=== PATIENT | female | born 1955 | race African-American/Black ===

== ENCOUNTER 2018-07-22 12:10 | Inpatient (IN) | payer OTHER ==
[2018-07-22] VITALS (21 sets, daily range): BP systolic 152–200; BP diastolic 57–108
[~2018-07-22] VITALS: Ht 172.7 cm; Wt 123.7 kg
--- NOTE | ~2018-07-22 | HC ---
[facility] [place] [address] CONSULTATION Name: FABIOLA VÁZQUEZ Room #: 243-P ADM IN M.R.#: [id number] Admission: 07/22/18 Attend Phys: Chad Fernandez MD Discharge: Date of : 59 Report #: [id number] THIS REPORT FOR: //name// CC: MELISSA physician/PCP Chad Fernandez DATE OF SERVICE: 07/22/2018 HISTORY OF PRESENT ILLNESS: This is a 62-year-old female patient who was evaluated by me for stroke. The patient was discussed with the Emergency Room physician and the patient provided history. The patient had an episode of dizziness, nausea, vomiting yesterday and she said she fully resolved from that. At 4:00 this morning, episode of dizziness, nausea and vomiting woke her up and she has never returned back to her baseline. She never had this kind of symptom before. She did have a CT scan of the head and I reviewed those films and CT scan of the head does demonstrate finding consistent with infarct in the left cerebellum, which is concerning. There is no pressure on the fourth ventricle; however, the patient's symptoms started just this morning. She denies any prior history of stroke and in fact, she still works at [employer]. She had a normal week last week. REVIEW OF SYSTEMS: Indicate that she does have a history of kidney problems. She has seen a teacher of the deaf/hard of hearing for a long time. She does have a history of hypertension. She had a prior history of hysterectomy. She does have a history of diabetes and blood sugar here is 205. She does not have any history of atrial fibrillation or anything specific to the heart. She keeps her eyes closed. She said it makes the nausea better. She is not complaining of any ENT, cardiac, respiratory symptoms. She is still nauseous, but is somewhat better. She denies any , musculoskeletal, constitutional, dermatological, hematological, psychiatric, throat, allergic symptom, which are new. PAST MEDICAL HISTORY: Negative for stroke. FAMILY HISTORY: Negative for any early age stroke. SOCIAL HISTORY: She does drink alcohol on special occasions. PHYSICAL EXAMINATION: Indicates she is alert, responsive. Her speech, concentration, fund of knowledge and memory is at her baseline. Cranial nerve examination 2-12, the best it could be done was unremarkable. She does complain of nausea. She moves her eyes in all directions and it does not look like she has any nystagmus. She moves all 4 extremities and she does appear to have akremu-ko-ftth abnormality in the left upper extremity. Nifn-ay-cwve, she does reasonably well even on the left side. Position sense is intact. I could not look at the fundus. She is moderately built individual who does not have any respiratory difficulty or rhonchi on either side. There is no edema, cyanosis [facility] [address] [place] [address] CONSULTATION Name: FABIOLA VÁZQUEZ Room #: 243-P ADM IN M.R.#: [id number] Admission: 07/22/18 Attend Phys: Chad Fernandez MD Discharge: Date of : 59 Report #: [id number] or jaundice. Blood pressure is 167/79, respirations 20, pulse is 89, temperature is 97.9. LABORATORY DATA: Indicate a white count of 13.0. 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 If the finding can be confirmed, then she needs to be watched very closely. This patient tends to herniate and typically the edema has worsened about the third day. She will need to be closely watched for that. We also need to determine the cause for her stroke. It will be desirable to make sure there is nothing abnormal going on in the basilar artery, which will require either medical management where we need to keep the blood pressure high. Although intervention can be done for 24 hours, but if the CT is already showing the stroke, then she may not be very good intervention candidate, but we need to find out if she is or not. Because of that, I would like to get an MRI done stat in this patient and I did order that. She does not have any contraindication for MRI. The patient is still nauseous and pretty dizzy. I will give the first dose of aspirin as a suppository. Rest of the management will depend upon the MRI. Until the MRI is done, the patient will go to ICU for close monitoring for development of any sign of herniation or increasing brain edema. This patient will need close monitoring for at least 3-5 days if the cerebellar stroke is confirmed. RECOMMENDATION: I discussed the situation with the patient. I discussed with her that cerebellar strokes need to be monitored very closely for edema. Only small percentage of them require surgery, but we need to watch this patient and if surgery is required, there is no neurosurgeon comes here and she need to be transferred to another facility. I discussed that with her and I discussed her options in that regard. She understands all those and she would like to get admitted here and get admitted to ICU and we will need to watch closely this patient over a period of some time. She is 62-year-old, she is female and we just need to watch her very closely for edema, especially in the light of her cerebellar stroke. Thank you very much for this referral. By: [id number] Gideon Shin MD /ingrid
[2018-07-22 13:38] LABS: ABSOLUTE NEUTROPHILS 11.7 thou/uL (1.4-8.2); BASOPHILS 0.5 % (0.0-2.0); EOSINOPHILS 0.3 % (0.0-3.0); HEMATOCRIT 30.6 % (37.0-47.0); HEMOGLOBIN 10.1 gm/dL (12.0-15.0); LYMPHOCYTES 6.6 % (24.0-44.0); MCH 29.6 pg (26.0-34.0); MCHC 33.1 g/dL (28.0-37.0); MCV 89.6 fL (80.0-100.0); MONOCYTES 2.4 % (1.0-8.0); PLATELET COUNT 171 thou/uL (150-400); POLYS 90.2 % (36.0-66.0); RBC 3.41 mil/uL (4.20-5.00)
[2018-07-22 13:50] LABS: ANION GAP 9 mmol/L (7-16); BUN 35 mg/dL (7-18); CALCIUM 8.8 mg/dL (8.5-10.1); CHLORIDE 108 mmol/L (98-107); CO2 19 mmol/L (21-32); CREATININE 2.8 mg/dL (0.6-1.0); GLUCOSE 205 mg/dL (74-106); POTASSIUM 4.9 mmol/L (3.5-5.1); SODIUM 136 mmol/L (136-145)
[2018-07-22 13:59] LABS: ALBUMIN 3.4 g/dL (3.4-5.0); MAGNESIUM 2.4 mg/dL (1.8-2.4); SGOT 15 U/L (15-37); SGPT 19 U/L (30-65); TOTAL BILIRUBIN 0.2 mg/dL (<0.1-1.0); TOTAL PROTEIN 7.6 g/dL (6.4-8.2); TROPONIN-I <0.06 ng/mL (<0.06)
[2018-07-22 14:00] LABS: APTT 27.1 Seconds (24.5-32.8); PROTIME 10.7 Seconds (9.3-11.4)
[2018-07-22 14:37] LABS: URINE BILIRUBIN NEGATIVE (Negative); URINE BLOOD NEGATIVE (Negative); URINE CLARITY CLEAR; URINE COLOR YELLOW; URINE GLUCOSE-RANDOM* NEGATIVE (Negative); URINE KETONES NEGATIVE (Negative); URINE LEUKOCYTES-REFLEX NEGATIVE (Negative); URINE NITRITE-REFLEX POSITIVE (Negative); URINE PROTEIN (DIPSTICK) 2+ (Negative); URINE UROBILINOGEN 0.2 E.U./dl (0.2-1.0)
[2018-07-22 14:54] LABS: BACTERIA-REFLEX >30 Many /HPF (None Seen); CASTS None Seen /LPF (None Seen); CRYSTALS None Seen /LPF (None Seen); SQUAMOUS 0-3 Few /LPF (0-3); URINE RBC None Seen /HPF (0-2); URINE WBC-REFLEX 0-5 Rare /HPF (0-5)
--- NOTE | 2018-07-22 20:51 | NUR ---
PT ARRIVED ON UNIT FROM MRI WITH NAUSEA/VOMITING, NO PAIN. PT SETTLED IN BED, TITAL TAKEN. REPORT RECIEVED FROM ER AND PASSED ON TO ROUGE MILLER RN.
[2018-07-23] VITALS (49 sets, daily range): BP systolic 146–204; BP diastolic 60–126
[2018-07-23 04:04] LABS: HEMOGLOBIN 9.8 gm/dL (12.0-15.0); MCHC 32.7 g/dL (28.0-37.0); MCV 88.8 fL (80.0-100.0); RBC 3.38 mil/uL (4.20-5.00); RDW 15.3 % (10.5-14.5)
[2018-07-23 04:20] LABS: ANION GAP 11 mmol/L (7-16); BUN 29 mg/dL (7-18); CALCIUM 8.8 mg/dL (8.5-10.1); CHLORIDE 112 mmol/L (98-107); CHOLESTEROL 124 mg/dL (<200); CO2 18 mmol/L (21-32); CREATININE 2.3 mg/dL (0.6-1.0); GLUCOSE 125 mg/dL (74-106); HDL CHOLESTEROL 40 mg/dL (>40); LDL CHOLESTEROL 75 mg/dL (<100); MAGNESIUM 2.5 mg/dL (1.8-2.4); POTASSIUM 5.1 mmol/L (3.5-5.1); SODIUM 141 mmol/L (136-145); TC:HDL 3.1 Ratio (Not establshd); TRIGLYCERIDE 49 mg/dL (<150); VLDL 10 mg/dL (<40)
[2018-07-23 04:28] LABS: SERUM ASSESSMENT Clear
--- NOTE | 2018-07-23 07:30 | NUR ---
ASSUMED CARE OF PT AT 1915. PT ARRIVED IN ICU FROM ER SHORTLY BEFORE SHIFT CHANGE. PT C/O DIZZINESS, AND N/V. NIH 1-2, FOR DROWSINESS AND SLIGHT APHASIA. ZOFRAN GIVEN X1, WHICH HELPED LESSEN N/V. PT SAID THAT THE DIZZINESS AND N/V GETS WORSE WITH MOVEMENT. DUE TO THIS, PT KEPT ON BEDREST AND USED A BEDPAN TO VOID. PT HYPERTENSIVE THROUGHOUT THE NIGHT. DR. DIOR CONTACTED ABOUT WHEN TO TREAT BP; SAID NOT TO TREAT UNTIL SBP > 220 AND TO RESTART HOME BP MEDS. DAUGHTER ALLEN AT BEDSIDE THROUGHOUT THE NIGHT. WILL CONTINUE TO MONITOR.
[2018-07-23] MEDS ORDERED: COZAAR 25 MG TA25 M1 PO (08:22)
[2018-07-23] MEDS ORDERED: SYNTHROID137 MC1 PO (08:22)
[2018-07-23] MEDS ORDERED: CHLORTHALIDONE25 MG PO (08:24)
[2018-07-23] MEDS ORDERED: NORVASC5 M1 PO (08:24)
[2018-07-23] MEDS ORDERED: BIDIL TABLET1 EACH PO (08:25)
[2018-07-23] MEDS ORDERED: SPIRONOLACTONE25 M1 PO (08:25)
[2018-07-23] MEDS ORDERED: METOPROLOL SUC200 MG PO (08:25)
[2018-07-23] MEDS ORDERED: DEMADEX20 MG PO (08:27)
[2018-07-23] MEDS ORDERED: LOPERAMIDE 2 MG2 M1 PO (08:27)
[2018-07-23] MEDS ORDERED: JANUVIA50 MG PO (08:28)
--- NOTE | 2018-07-23 08:40 | EKG ---
[place] [address] [facility] [place] [address] ELECTROCARDIOGRAM REPORT Name: FABIOLA VÁZQUEZ Room #: 243-P ADM IN M.R.#: [id number] Admission: 07/22/18 Attend Phys: Chad Fernandez MD Discharge: Date of : 59 Report #: [id number] THIS REPORT FOR: //name// [facility] ED Test Date: 2018-07-22 Test Time: 13:29:05 Pat Name: FABIOLA VÁZQUEZ Department: Room: 243 Gender: F Marker Hand: anita : 1955 Requested By: Basil Padilla Order Number: [id number] MD: Salas Cruz Measurements Intervals [place] Rate: 89 P: 38 KS: 208 QRS: -44 QRSD: 117 T: 97 QT: 398 QTc: 485 Interpretive Statements Sinus rhythm Borderline prolonged KS interval LVH with IVCD, LAD and secondary repol abnrm Left anterior hemiblock Anterior ST elevation, probably due to LVH No previous ECG available for comparison Electronically Signed On 07-23-2018 8:39:50 FLARE MAKER by Salas Cruz [email or web address] <ELECTRONICALLY SIGNED> By: Salas Cruz MD, [facility] 07/23/18 0839 [id number] [id number] Salas Cruz MD, [facility] /EPI
--- NOTE | 2018-07-23 10:41 | 2DMMODE ---
[facility] [place] [address] 2 D/M-MODE ECHOCARDIOGRAM Name: FABIOLA ÁVZQUEZ Room #: 243-P ADM IN M.R.#: [id number] Admission: 07/22/18 Attend Phys: Chad Fernandez MD Discharge: Date of : 59 Date of Service: 07/23/18 1041 Report #: [id number] THIS REPORT FOR: //name// APPROVED REPORT Study performed: 07/23/2018 08:28:50 EXAM: Comprehensive 2D, Doppler, and color-flow Echocardiogram Patient Location: ICU Room #: 243 Status: routine BSA: 2.04 HR: 91 bpm BP: 184/79 mmHg Other Information Study Quality: Adequate Indications CVA/TIA Diabetes Hypertension/HDD Echo Enhancing Agent Indication: Rule out Shunt Agent(s) / Amount(s) Used: Agitated Saline 7 cc 2D Dimensions RVDd: 33.02 mm IVSd: 11.96 (7-11mm) LVOT Diam: 19.70 (18-24mm) LVDd: 47.86 mm PWd: 11.96 (7-11mm) Ascending Ao: 32.11 (22-36mm) LVDs: 35.43 (25-40mm) Aortic Root: 31.86 mm Volumes Left Atrial Volume (Systole) Single Plane 4CH: 52.74 mL Single Plane 2CH: 72.49 mL LA ESV Index: 34.00 mL/m2 Aortic Valve AoV Peak Gregorio.: 1.87 m/s AO Peak Gr.: 14.00 mmHg LVOT Max P.69 mmHg LVOT Max V: 1.19 m/s MARIA ELENA Vmax: 1.94 cm2 [facility] [email or web address] [address] 2 D/M-MODE ECHOCARDIOGRAM Name: FABIOLA VÁZQUEZ Room #: Counts include 234 beds at the [facility] IN ..#: [id number] Admission: 07/22/18 Attend Phys: Chad Fernandez MD Discharge: Date of : 59 Date of Service: 07/23/18 1041 Report #: [id number] Pulmonary Valve PV Peak Gregorio.: 0.85 m/s PV Peak Gr.: 2.92 mmHg Left Ventricle The left ventricle is normal size. There is normal LV segmental wall motion. Mild concentric left ventricular hypertrophy. The left ventricular systolic function is normal. The left ventricular ejection fraction is within the normal range. LVEF is 55-60%. Grade II - pseudonormal filling dynamics. Right Ventricle The right ventricle is normal size. The right ventricular systolic function is normal. Atria Left atrium is at the upper limits of normal. Interatrial septum is intact without evidence of ASD or PFO. The right atrium size is normal. Aortic Valve The aortic valve is normal in structure. No aortic regurgitation is present. There is no aortic valvular stenosis. Mitral Valve The mitral valve is normal in structure. Trace mitral regurgitation. No evidence of mitral valve stenosis. Tricuspid Valve The tricuspid valve is normal in structure. There is no tricuspid valve regurgitation noted. Pulmonic Valve The pulmonary valve is normal in structure. There is no pulmonic valvular regurgitation. Great Vessels The aortic root is normal in size. The inferior vena cava is not well visualized. Pericardium There is no pericardial effusion. [facility] [email or web address] [address] 2 D/M-MODE ECHOCARDIOGRAM Name: FABIOLA VÁZQUEZ Room #: 243-P ADM IN M.R.#: [id number] Admission: 07/22/18 Attend Phys: Chad Fernandez MD Discharge: Date of : 59 Date of Service: 07/23/18 1041 Report #: [id number] <Conclusion> The left ventricle is normal size. Mild concentric left ventricular hypertrophy. The left ventricular systolic function is normal. Grade II - pseudonormal filling dynamics. The right ventricle is normal size. Left atrium is at the upper limits of normal. Interatrial septum is intact without evidence of ASD or PFO. The aortic valve is normal in structure. Trace mitral regurgitation. There is no tricuspid valve regurgitation noted. <ELECTRONICALLY SIGNED> By: Phan Gonzalez MD 07/23/18 1041 1041 1041 Phan Gonzalez MD /INF
--- NOTE | 2018-07-23 15:45 | NUR ---
patient admits with CVA symtoms. Met with patient and dtr at bedside. patient resides in independent home with son and dtr. 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 She has apt the end of this month for new PCP Dr Amelie Romo. 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 Casemgt following for dc planning.
--- NOTE | 2018-07-23 17:28 | NUR ---
PT IS ALERT AND ORIENTED X4. LUNGS ARE CLEAR ON ROOM AIR. NIH SCALE IS A TWO. SPPECH AND SWALLOW DONE ON A MECH SOFT DIET. TOLERATED WELL. SINUS RHYTHM ON THE MONITOR. ABDOMEN IS SOFT AND ROUND BOWEL SOUNDS ACTIVE. SOME GNERALIZED WEAKNESS NOTED . NEEDS PT AND OT TO SEE PT. VOIDS PER BEDPAN. FAMILY AT BEDSIDE FOR SUPPORT. WILL CONTINUE TO ASSESS AND MONITOR PER NURSING
[2018-07-24] VITALS (32 sets, daily range): BP systolic 137–192; BP diastolic 53–98
--- NOTE | 2018-07-24 04:15 | NUR ---
Pt initially very drowsy, but has become more alert as shift progressed. NIH 1, now 0. NSR-ST per tele. Hypertensive prior to scheduled BP meds. Pt's main complaint is feeling weak and still unsteady. Voids per bedpan without difficulty. Given wipes and did own pericare, positions self in bed. Eager to begin rehab process. Progressing towards discharge goals.
--- NOTE | 2018-07-24 15:06 | NUR ---
PT IS ALERT AND ORIENTED X4. PHYSICAL THERAPY AND OCCUPATIONAL THERAPY WORKED WITH PT. PT ACTIVELY PARTICPATES IN CARE. FAMILY AT BEDSIDE FOR SUPPORT.SINUS RHYTHM WITH BBB. ON ROOM AIR. EATING HER DIET WITHOUT ANY SWALLOWING DIFFICULTY. TIRED AFTER THERAPY TODAY. REHAB AND SPEECH ALSO SAW PT TODAY WITH RECOMENDATIONS. WILL CONTINUE TO ASSESS AND MONITOR PER NURSING
--- NOTE | 2018-07-24 15:29 | NUR ---
5N following for possible acute rehab stay. sp with patient who is in agreement with plan for 5N.
--- NOTE | 2018-07-24 20:06 | NUR ---
TOOK OVER CARE OF PT FROM ICU AT APPROX 1600. NO S/SX OF CARDIAC OR RESP DISTRESS. NO COMPLAINTS VOICED. MAX ASSIST FROM WHEELCHAIR TO BED WITH GAITBELT. AOX4, PT FAMILY IN ROOM. AT APPROX 1742 PT HAD 16 BEAT OF VTACH, PT ASYMPTOMATIC. WILL CONTINUE TO MONITOR.
[2018-07-25 00:13] VITALS: BP 162/73
[2018-07-25 04:37] VITALS: BP 153/91
[2018-07-25 07:12] VITALS: BP 161/79
--- NOTE | 2018-07-25 07:45 | NUR ---
ASSUME CARE 1900. PT DENIES ANY PAIN. Q4 NIH ASSESSMENTS DONE. PT SCORING 0. ILD WEAKNESS NOTED ON LEFT SIDE. NEEDS MORE WORK WITH PT/OT. RESTED WELL THROUGH THE NIGHT. ASSESSMENT CHARTED PROGRESSING WELL WITH POC. PLAN IS FOR INSURANCE TO CLEAR PT FOR 5N REHAB. WILL CONTINUE TO MONITOR AND FOLLOW WITH POC
[2018-07-25 10:56] LABS: HEMATOCRIT 29.3 % (37.0-47.0); HEMOGLOBIN 9.9 gm/dL (12.0-15.0); MCH 29.4 pg (26.0-34.0); MCHC 33.8 g/dL (28.0-37.0); RBC 3.36 mil/uL (4.20-5.00); RDW 15.2 % (10.5-14.5); WBC 13.2 thou/uL (4.0-11.0)
[2018-07-25 11:05] LABS: CALCIUM 8.6 mg/dL (8.5-10.1); CREATININE 2.3 mg/dL (0.6-1.0); POTASSIUM 4.6 mmol/L (3.5-5.1)
[2018-07-25 12:30] VITALS: BP 155/87
--- NOTE | 2018-07-25 14:00 | NUR ---
FAX FROM [facility] WITH AUTH FOR ACUTE INPT REHAB STAY. UPDATED DR. CAI WHO STATES HE NEEDS TO CONFER WITHNEPHROLOGY TO SEE IF PT READY FOR ACUTE REHAB TRANSITION OF CARE TODAY. UPDATED TO 5N LIAISON, 2N RN AND SWS.
--- NOTE | 2018-07-25 14:58 | NUR ---
Nutrition: pt admit with cerebellar infarct. Seen due to BMI 41.5, extreme class 3 obesity. Chart reviewed. Tolerating mechanically altered chopped diet with fair appetite. 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 Possible transfer to . Consider low risk.
[2018-07-25] MEDS ORDERED: ATORVASTATIN CA10 MG PO (15:51)
[2018-07-25] MEDS ORDERED: ANTIVERT25 MG PO (15:51)
[2018-07-25] MEDS ORDERED: CARVEDILOL12.5 MG PO (15:51)
[2018-07-25] MEDS ORDERED: ASPIRIN325 PO (15:51)
[2018-07-25] MEDS ORDERED: TRADJENTA5 MG PO (15:51)
[2018-07-25] MEDS ORDERED: COZAAR100 MG PO (15:51)
[2018-07-25] MEDS ORDERED: CEFUROXIME250 MG PO (15:51)
[2018-07-25 16:30] VITALS: BP 185/106
--- NOTE | 2018-07-25 20:10 | NUR ---
ASSUMED CARE OF PT AT 0700. PT A&OX4, UP WITH 2 AND GAIT BELT TO TRANSFER TO BEDSIDE COMMODE. PHYSICAL THERAPY HAD PT TAKE A FEW STEPS WITH WALKER AND SHE WAS UNSTEADY. PT EVAL BY SPEECH AND SHOULD NOT USED STRAWS TO AVOID ASPIRATION. PT HAD HIGH BLOOD PRESSURE AT 1600. THE DR. HAD INCREASED BP MED AND MED GIVEN. PT TRANSFERRED TO 5N AT APPROX 1800. REPORT GIVEN TO NURSE BENÍTEZ.
== END 2018-07-25 18:33 | DRG 64 ==
LOC: ER 12:10 → EROBS 16:16 → ICU 16:16 → 2N 07-24 16:15
PROVIDERS: Emergency Medicine; Nurse Practitioner Gerontology; ADMIT Internal Medicine
DX: I63.9 Cerebral infarction, unspecified (principal); N17.0 Acute kidney failure with tubular necrosis; I16.1 Hypertensive emergency; I42.9 Cardiomyopathy, unspecified; I13.0 Hypertensive heart and chronic kidney disease with heart failure and stage 1 through stage 4 chronic kidney disease, or unspecified chronic kidney disease; I50.32 Chronic diastolic (congestive) heart failure; Z68.41 Body mass index [BMI] 40.0-44.9, adult; N39.0 Urinary tract infection, site not specified; G81.94 Hemiplegia, unspecified affecting left nondominant side; R26.9 Unspecified abnormalities of gait and mobility; D63.8 Anemia in other chronic diseases classified elsewhere; E11.22 Type 2 diabetes mellitus with diabetic chronic kidney disease; N18.3 Chronic kidney disease, stage 3 (moderate); E66.01 Morbid (severe) obesity due to excess calories; R27.8 Other lack of coordination; F17.210 Nicotine dependence, cigarettes, uncomplicated; E11.65 Type 2 diabetes mellitus with hyperglycemia; Z90.710 Acquired absence of both cervix and uterus; Z88.0 Allergy status to penicillin; Z71.6 Tobacco abuse counseling; Z87.11 Personal history of peptic ulcer disease
CPT/HCPCS: 10078; 10081

== ENCOUNTER 2018-07-25 15:29 | Inpatient (IN) | payer OTHER ==
[~2018-07-25] VITALS: Ht 172.7 cm; Wt 126.6 kg
[~2018-07-25 15:29] MED LIST: BIDIL TABLET1 EACH PO; CHLORTHALIDONE25 MG PO; COZAAR 25 MG TA25 M1 PO; DEMADEX20 MG PO; JANUVIA50 MG PO; LOPERAMIDE 2 MG2 M1 PO; METOPROLOL SUC200 MG PO; NORVASC5 M1 PO; SPIRONOLACTONE25 M1 PO; SYNTHROID137 MC1 PO
[2018-07-25] MEDS ORDERED: COZAAR100 MG PO (15:51)
[2018-07-25] MEDS ORDERED: ASPIRIN325 PO (15:51)
[2018-07-25] MEDS ORDERED: ANTIVERT25 MG PO (15:51)
[2018-07-25] MEDS ORDERED: TRADJENTA5 MG PO (15:51)
[2018-07-25] MEDS ORDERED: CARVEDILOL12.5 MG PO (15:51)
[2018-07-25] MEDS ORDERED: CEFUROXIME250 MG PO (15:51)
[2018-07-25] MEDS ORDERED: ATORVASTATIN CA10 MG PO (15:51)
[2018-07-25 20:41] VITALS: BP 157/104
[2018-07-26 00:10] VITALS: BP 165/75
--- NOTE | 2018-07-26 01:20 | NUR ---
PT ADMITTED TO 5N THIS EVENING FOR REHAB POST STROKE. BP ELEVATED. 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 ORDERS TO RECHECK BP LATER IN THE EVENING. RECHECK NOW 165/75. ADMIT HX AND ASSESSMENT COMPLETED. CONSENTS SIGNED. PT REPOSITIONING FREQUENTLY ON HER OWN IN THE BED. SLEEPING WELL. WILL CONTINUE TO MONITOR FREQUENTLY.
[2018-07-26 04:23] LABS: HEMATOCRIT 27.2 % (37.0-47.0); HEMOGLOBIN 9.1 gm/dL (12.0-15.0); MCH 29.3 pg (26.0-34.0); MCHC 33.4 g/dL (28.0-37.0); MCV 87.9 fL (80.0-100.0); RBC 3.1 mil/uL (4.20-5.00); WBC 13.9 thou/uL (4.0-11.0)
[2018-07-26 04:29] LABS: CALCIUM 8.7 mg/dL (8.5-10.1); CREATININE 2.2 mg/dL (0.6-1.0); POTASSIUM 4.6 mmol/L (3.5-5.1)
--- NOTE | 2018-07-26 10:54 | NUR ---
ASSUMED CARES AT 0700. PT ALERT AND ORIENTED*4. DENIES PAIN. BP ELEVATED THIS AM, BPL MEDICATIONS ADMINISTERED ORDERED. ALL OTHER VITALS REMAINED STABLE. ABDOMEN SOFT AND DISTENDED, LAST BM 2/, PT HAS HAD A HX OF DIARRHEA, IMMODIUM ADMINISTERED ON 23 AFTER DIARRHEA EPISODE. PT UP WITH 1 PERSON MOD. ASSIST, AMBULATED WITH PT THIS AM AND TOLERATED WELL. Q1H VISUAL CHECKS. CALL LIGHT WITHIN REACH. FALL PRECAUTIONS IN PLACE
--- NOTE | 2018-07-26 12:00 | NUR ---
Nutrition: Pt admit to rehab with CVA. BMI 42. Requires mechanically altered chopped diet per ST. Weight loss of 3% over the past few months due to issues related to diarrhea/IBS. Etiology unclear but had colonoscopy. Avoids fatty foods/dairy. Is ordering meals and eating approx. 50%. Hx DM. BG 125-194. Will add heart healthy and diabetic diet restrictions. Pt voices no questions related to diet at this time however will followup closer to D/C to address again. Consider low risk at this time.
--- NOTE | 2018-07-26 12:54 | NUR ---
cm visited with pt at bedside, pt is a & o x 4, pleasant and able to make her needs know. intro to cm, team meets. pt was independent prior to hospital, lives with her kids, working, driving. no dme, no past home health or rehab. new pcp will be dr yanira worthy, have appointment end of jul."/astrid. will cont following as needed for dc needs.
[2018-07-26 14:12] VITALS: BP 160/85
[2018-07-26 20:15] VITALS: BP 164/88
--- NOTE | 2018-07-27 00:41 | NUR ---
PT ALERT AND ORIENTED X 4. LEFT SIDED WEAKNESS AND FACIAL DROOP. BLOOD PRESSURE 164/88 AT HS. PT DENIES PAIN OR DISCOMFORT. BED ALARM ON FOR SAFETY. PT APPEARS TO BE SLEEPING ON HOURLY ROUNDS.
[2018-07-27 08:00] VITALS: BP 161/91
[2018-07-27 08:45] VITALS: BP 159/86
[2018-07-27 11:50] LABS: HEMATOCRIT 29.5 % (37.0-47.0); HEMOGLOBIN 9.8 gm/dL (12.0-15.0); MCH 29.7 pg (26.0-34.0); MCHC 33.1 g/dL (28.0-37.0); MCV 89.7 fL (80.0-100.0); RBC 3.29 mil/uL (4.20-5.00); RDW 14.8 % (10.5-14.5); WBC 13.6 thou/uL (4.0-11.0)
[2018-07-27 11:57] LABS: CALCIUM 8.9 mg/dL (8.5-10.1); CREATININE 2.3 mg/dL (0.6-1.0); POTASSIUM 5.2 mmol/L (3.5-5.1)
--- NOTE | 2018-07-27 13:21 | NUR ---
ASSUMED CARES AT 0700. PT AWAKE, ALERT AND ORIENTED*4. DENIES PAIN. C/O NAUSEA AND HAD A SMALL EMESIS THIS AM, KUB ORDERED AND LABS, KUB SHOWED CONSTIPATION, SENNA/DOCUSATE ADMINISTERED PER ORDER. NAUSEA RESOLVED AND PT ABLE TO EAT LUNCH WITHOUT FURTHER COMPLICATIONS. ABDOMEN FIRM AND DISTENDED, HYPERACTIVE BS, LAST BM 07/22 (PT HAS HX 0F CHRONIC DIARRHEA (IBS) AND IMMODIUM WAS ADMINISTERED ON 07/22). SBP 161 THIS AM, BP LOWERING MEDS ADMINISTERED ORDERED. PT CONTINUES TO HAVE BLE EDEMA. SKIN REMAINS INTACT. PT UP WITH 1 PERSON MIN ASSIST. AMBULATED THE HALLWAY WITH THERAPY AND TOLERATED WELL. Q1H VISUAL CHECKS. CALL LIGHT WITHIN REACH. FALL PRECAUTIONS IN PLACE
[2018-07-27 17:00] VITALS: BP 169/90
[2018-07-27 19:52] VITALS: BP 168/88
--- NOTE | 2018-07-28 02:45 | NUR ---
assumed care at approx 1900 evening 07/27. pt sitting up in recliner at change of shift with family visiting at bedside. pt alert and oriented x4, appropriate and cooperative. pt assisted up to w/c and into bathroom to transfer to toilet. pt passing flatus but no bm yet. pt denies discomfort. pt requested to sleep in recliner in room. pt appears to be sleeping soundly with hourly rounding checks. chair alarm on. call light in reach. will continue to monitor.
[2018-07-28 07:23] VITALS: BP 163/74
--- NOTE | 2018-07-28 10:26 | NUR ---
ASSUMED CARES AT 0700. PT AWAKE, ALERT AND ORIENTED*4. DENIES PAIN. BP ELEVATED THIS AM, BP LOWERING MEDICATIONS ADMINISTERED. HS S1S2, PT CONTINUES TO HAVE BLE EDEMA (2+), EXTREMITIES ELEVATED. ABDOMEN FIRM AND DISTENDED, BS HYPOACTIVE, LAST BM ON 07/22, SENNA/DOC ADMINISTERED. PT VOIDING 1-2 TIMES A DAY SMALL AMOUNTS, ENCOURAGED TO DRINK ENOUGH FLUIDS TOLERATED TO STAY HYDRATED. PT UP WITH 1 PERSON MOD ASSIST, TOLERATED WELL. Q1H VISUAL CHECKS. CALL LIGHT WITHIN REACH. FALL PRECAUTIONS IN PLACE
[2018-07-28 16:30] VITALS: BP 174/71
[2018-07-28 19:20] VITALS: BP 156/78
--- NOTE | 2018-07-29 01:27 | NUR ---
assumed care at approx 1900 evening 07/28. pt sitting up in bed at change of shift visiting with family members at bedside. pt alert and oriented x4, pleasant and cooperative. family stayed until [id number]. pt did have large bm tonight flushing down toilet before this freelance writer saw. pt stated it was a very large bm and stated she felt better. pt now back to bed appears to be sleeping soundly with hourly rounding checks. bed alarm on and call light in reach. will continue to monitor.
--- NOTE | 2018-07-29 18:39 | NUR ---
ASSUMED CARE OF PT AT 0715. PT IS A&OX4, WITH SOME SLURRED SPEECH. IS ON ROOM AIR. DENIES PAIN. IS UP WITH MAX ASSIST OF 1-2, GB, WALKER. FALL PRECAUTIONS & HOURLY ROUNDING MAINTAINED. IS STABLE. LABS & VITALS REVIEWED. PT REFUSED SHOWER TODAY. PT STATED, "I HAD A REALLY GOOD ONE YESTERDAY WITH OT, I WILL WAIT UNTIL TOMORROW". THIS NURSE OFFERED TO GIVE PT BATH IF SHE CHANGED HER MIND. PT IS CURRENTLY UP IN WC, WATCHING TV. CALL LIGHT WITHIN REACH. PT IS NOT SURE WHEN SHE IS READY TO GO TO BED. WILL CONTINUE TO MONITOR. HAS ACCU CHECKS ACHS WITH NO SLIDDING SCALE INSULIN.
[2018-07-29 19:20] VITALS: BP 143/81
--- NOTE | 2018-07-30 00:13 | NUR ---
PT ALERT AND ORIENTED X 4. TRANSFERRED TO TOILET WITH ASSIST X 1 WITHOUT DIFFICULTY. PT DENIES PAIN OR DISCOMFORT. BED ALARM ON FOR SAFETY. PT CHECKED ON HOURLY ROUNDS.
[2018-07-30 06:23] LABS: ABSOLUTE NEUTROPHILS 8.9 thou/uL (1.4-8.2); BASOPHILS 0.6 % (0.0-2.0); EOSINOPHILS 1.5 % (0.0-3.0); HEMATOCRIT 27.1 % (37.0-47.0); HEMOGLOBIN 8.9 gm/dL (12.0-15.0); MCHC 32.7 g/dL (28.0-37.0); MCV 88.9 fL (80.0-100.0); MONOCYTES 5.5 % (1.0-8.0); PLATELET COUNT 177 thou/uL (150-400); POLYS 75.4 % (36.0-66.0); RBC 3.05 mil/uL (4.20-5.00); RDW 14.7 % (10.5-14.5); WBC 11.8 thou/uL (4.0-11.0)
[2018-07-30 06:34] LABS: CALCIUM 8.5 mg/dL (8.5-10.1); CREATININE 2.6 mg/dL (0.6-1.0); MAGNESIUM 2.1 mg/dL (1.8-2.4); POTASSIUM 4.4 mmol/L (3.5-5.1)
[2018-07-30 07:30] VITALS: BP 160/81
--- NOTE | 2018-07-30 10:36 | NUR ---
ASSUMED CARES AT 0700. PT AWAKE, ALERT AND ORIENTED *4. DENIES PAIN. HS STABLE, BY ELEVATED THIS AM, 160/81, BP LOWERING MEDS ADMINISTERED. PT CONTINUES TO HAVE BLE EDEMA, ENCOURAGED TO ELEVATE EXTREMITIES. ABDOMEN SOFT AND DISTENDED, BS ACTIVE*4, LAST BM 07/29. PT URINE OUTPUT LOW, HOSPITALIST AWARE, STRICT I&O ORDERED FOR 24HRS AND ENCOURAGE FLUID INTAKE. PT UP WITH 1 PERSON MIN-MOD ASSIST, AMBULATING WITH THERAPY AND TOLERATED WELL. Q1H VISUAL CHECKS. CALL LIGHT WITHIN REACH. FALL PRECAUTIONS IN PLACE
[2018-07-30 17:00] VITALS: BP 145/82
[2018-07-30 19:55] VITALS: BP 149/83
--- NOTE | 2018-07-31 | NUR ---
UP WITH ONE PERSON MODERATE ASSIST FOR 300 CC VOID. OVERNIGHT VISITOR. PATIENT AWARE THAT SHE IS ON I AND O FOR 24 HOURS UNTIL 10 AM. PLEASANT, UP IN CHAIR WITH FAMILY UNTIL 2200
--- NOTE | 2018-07-31 07:08 | HC ---
[facility] [place] [address] CONSULTATION Name: FABIOLA VÁZQUEZ Room #: 511-P ADM IN M.R.#: [id number] Admission: 07/25/18 ������������������ Attend Phys: Rd Gan MD Discharge: ������������������ Date of : 59 Report #: [id number] THIS REPORT FOR: //name// CC: Rd Gan FAM physician/PCP DATE OF SERVICE: 07/29/2018 TYPE OF REPORT: Neurobehavioral status exam. ATTENDING PHYSICIAN: Rd Gan M.D. SLEEPING CAR CONDUCTOR: Sage Rich, PhD. AGE: 62. CLINICAL PRESENTATION: The patient is a 62-year-old -Turkmen female admitted to [facility] for comprehensive inpatient rehabilitation program. She was diagnosed with an acute left cerebellar CVA. The patient was at home when she began to experience difficulty with walking and balance. She was subsequently brought to the hospital following a 911 call. Her diagnoses on admission to rehab included ischemic left cerebellar CVA, truncal ataxia with gait instability, left upper and lower extremity dysmetria with ataxia, dizziness and nausea secondary to the CVA, hypertension, acute renal cyst, urinary tract infection, cardiomyopathy and tobacco abuse. A complete description of her medical condition, history and medications can be found in her medical record. Neuropsychological consultation was requested to provide assistance in the assessment of cognitive and emotional status and to provide recommendations and services. Prior to this most recent admission, she was living independently in her own home. Her daughter lives with her. 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. She is a college graduate. The patient had 2 children. She does not report a prior history of treatment for depression, anxiety or having cognitive deficits. TECHNIQUES UTILIZED: Clinical interview, review of medical records, staff consultation and behavioral observation, mini mental status exam 2 standard version, verbal fluency assessment (letter and category) and clock drawing. EXAMINATION FINDINGS: The patient was alert and cooperative with the assessment. She accurately described events surrounding her admission. There is no evidence of aphasia. Her thoughts are logical and goal oriented. There is no evidence of thought disorder. She does not report auditory or visual [facility] [address] [place] [address] CONSULTATION Name: FABIOLA VÁZQUEZ Room #: 511-P [facility] IN M.R.#: [id number] Admission: 07/25/18 ������������������ Attend Phys: Rd Gan MD Discharge: ������������������ Date of : 59 Report #: [id number] hallucinations. She describes her symptoms to include decreased appetite and that food does not taste good, difficulty with memory, anxiety in regard to her recovery and tiredness and fatigue. She has a personable and engaging personality. Her performance on the MMSE 2 brief version is within normal limits with a raw score of 14 of 16. The patient was 3 of 3 for initial registration, 4 of 5 for orientation to time, 5 of [address] and 2 of 03 for immediate recall of 3 items after a brief time delay and distraction. Her performance on the MMSE 2 standard version is within normal limits with a raw score of 27 of 30. The patient was 5 of 5 for serial sevens, 2 of 2 for naming, 1 of 1 for repetition, 3 of 3 for auditory comprehension, 1 of 1 for being able to read and follow single command and 1 of 1 for unable to write a sentence. She had difficulty in copying a simple geometric design. Clock drawing is within normal limits. Letter fluency was at the 4th percentile with a T score of 32. Overall, category fluency with a T score of 35, which is at the 7th percentile. Overall, total fluency was at the 2nd percentile with a T score of 30. Difficulty in verbal fluency can be seen with deficits in organization, planning and problem solving. Her mood appears positive, although mild anxiety is suggested. DIAGNOSTIC IMPRESSION: Vascular mild neurocognitive disorder, without behavior disorder. Unspecified anxiety disorder. RECOMMENDATIONS: The patient would benefit from an outpatient neuropsychological assessment in 2-3 months. She is hoping to return to work and is concerned about her overall level of functioning in general recovery. Verbal praise and complements will assist in her maintaining motivation for therapy. Patient will benefit from cognitive rehabilitation and specific feedback regarding deficits in cognitive functioning and strategies for compensation. Thank you very much for allowing me to provide the consultation on this patient. ��������������������������������������������� <ELECTRONICALLY SIGNED> ���������������������������������������� By: Sage Rich, PhD ��������������������������������������������� 07/31/18 0708 [id number] Sage Rich, PhD /nt
[2018-07-31 09:56] VITALS: BP 142/65
--- NOTE | 2018-07-31 10:55 | NUR ---
ASSUMED CARE AT 0700. PATIENT IS ALERT AND ORIENTED X4. PATIENT WADE'S, BUT HAS SOME RIGHT SIDED WEAKNESS. LUNGS ARE CLEAR. ABD IS SOFT WITH BSX4. UP IN W/C FOR MEALS. DAUGHTER IN ROOM. FALL AND SAFETY PROTOCOLS IN PLACE. DENIES ANY PAIN AT THIS TIME. CONTINUES TO PROGESS D/C GOALS. WILL CONTINUE TO MONITER.
--- NOTE | 2018-07-31 12:57 | NUR ---
team meeting,,reccomendation: re team, dc 21st, initial increased family support, fww, family to get shower chair, hh initial and transfer to [facility], hh (pt, ot, nursing). outpt neuro pysch.
[2018-07-31 19:55] VITALS: BP 155/87
--- NOTE | 2018-08-01 04:49 | NUR ---
BOWEL MOVEMENT LAST EVENING. BLOOD SUGAR 126. UP IN WHEELCHAIR WITH FAMILY. PLEASANT
[2018-08-01 08:49] VITALS: BP 152/89
--- NOTE | 2018-08-01 11:25 | NUR ---
ASSUMED CARE AT 0700. PATIENT IS ALERT AND ORIENTED X4. PATIENT WADE'S. COFFEE ROASTER HELPER ARE EQUAL. LUNGS ARE CLEAR. ABD IS SOFT WITH BSX4. +1 EDEMA IN LOWER EXTREMITIES. UP TO THE BATHROOM WITH GAITBELT AND WALKER. UP IN W/C FOR MEALS. FALL AND SAFETY PROTOCOLS IN PLACE. DENIES PAIN AT THIS TIME. CONTINUES TO PROGRESS SLOWLY TOWARDS D/C GOALS. WILL CONTINUE TO MONITER.
--- NOTE | 2018-08-01 15:38 | NUR ---
Nutrition: pt seen per followup. Appetite has improved to 100% of most meals. BG 125-136 on 1500 carb controlled, heart healthy diet. No weight since 07/25. Pt agrees to diet review. See interdisciplinary education log for details. Continue as low risk.
[2018-08-01 17:28] VITALS: BP 172/79
[2018-08-01 19:38] VITALS: BP 172/83
[2018-08-01 20:30] VITALS: BP 153/79
--- NOTE | 2018-08-02 03:20 | NUR ---
assumed care at approx 1900 evening 08/01. pt sitting up in bed at change of shift visiting with family at bedside. pt alert and oriented x4, pleasant and cooperative. pt took hs meds with water tolerating well. daughter staying the night at bedside. pt appears to be sleeping soundly with hourly rounding checks. bed alarm on and call light in reach. will continue to monitor.
[2018-08-02 09:33] VITALS: BP 136/60
--- NOTE | 2018-08-02 10:55 | NUR ---
visited with daughter chyna at bedside with mom working with pt, referral to be sent to [facility] per daughter and astrid request. dcp 21st
--- NOTE | 2018-08-02 17:36 | NUR ---
ASSUMED CARES AT 0700. PT AWAKE, ALERT AND ORIENTED *4. DENIES PAIN. BP ELEVATED THIS EVENING 170/96, BP LOWERING MEDS ADMINISTERED. ALL OTHER VITALS STABLE. PT VOIDED 2-3 TIMES TODAY, 450-600CC EACH, URINE IS LIGHT YELLOW WITH NO FOUL ODOR. PT UP WITH 1 PERSON MIN ASSIST, AMBULATED WITH THERAPY AND TOLERATED WELL. Q1H VISUAL CHECKS. DAUGHTER AT BEDSIDE. CALL LIGHT WITHIN REACH. FALL PRECAUTIONS IN PLACE
[2018-08-02 19:41] VITALS: BP 148/74
--- NOTE | 2018-08-03 02:13 | NUR ---
assumed care at approx 1900 evening 08/02. pt sitting up in bed visiting with family at bedside. pt alert and oriented x4, pleasant and cooperative. pt given hs meds, denies pain. pt appears to be sleeping soundly with hourly rounding checks. bed alarm on and call light in reach. will continue to monitor.
[2018-08-03 05:50] LABS: ABSOLUTE NEUTROPHILS 8.8 thou/uL (1.4-8.2); BASOPHILS 0.5 % (0.0-2.0); EOSINOPHILS 2.3 % (0.0-3.0); HEMATOCRIT 28.2 % (37.0-47.0); HEMOGLOBIN 8.5 gm/dL (12.0-15.0); LYMPHOCYTES 13.8 % (24.0-44.0); MCH 28.6 pg (26.0-34.0); MCHC 30.1 g/dL (28.0-37.0); MONOCYTES 6.4 % (1.0-8.0); PLATELET COUNT 147 thou/uL (150-400); RBC 2.97 mil/uL (4.20-5.00); RDW 15.7 % (10.5-14.5); WBC 11.5 thou/uL (4.0-11.0)
[2018-08-03 05:59] LABS: CALCIUM 8.4 mg/dL (8.5-10.1); CREATININE 2.9 mg/dL (0.6-1.0); MAGNESIUM 2.4 mg/dL (1.8-2.4); POTASSIUM 4.8 mmol/L (3.5-5.1)
[2018-08-03 08:56] VITALS: BP 165/74
--- NOTE | 2018-08-03 10:32 | NUR ---
ASSUMED CARES AT 0700. PT AWAKE, ALERT AND ORIENTED *4. DENIES PAIN. VITALS REMAINED STABLE FOR THIS PATIENT. PT CONTINUES TO HAVE BLE EDEMA, ESE HOSE ORDERED AND PT ENCOURAGED TO ELEVATE EXTREMITIES WHEN IN CHAIR. PT VOIDING WITHIN NORMAL LIMITS, ENCOURAGED TO STAY HYDRATED. PT UP WITH 1 PERSON MIN ASSIST, AMBULATING THE HALLWAY WITH THERAPY AND TOLERATED WELL. Q1H VISUAL CHECKS. CALL LIGHT WITHIN REACH. FALL PRECAUTIONS IN PLACE
--- NOTE | 2018-08-03 12:41 | PLAN ---
[facility] [place] [address] REHAB UNIT PLAN OF CARE Name: FABIOLA VÁZQUEZ Room #: 511-P ADM IN M.R.#: [id number] Admission: 07/25/18 ������������������ Attend Phys: Rd Gan MD Discharge: ������������������ Date of : 59 Report #: [id number] THIS REPORT FOR: //name// CC: Rd Gan [facility] physician/PCP DATE OF SERVICE: 07/26/2018 PROGRESS NOTE/OVERALL PLAN OF CARE SUBJECTIVE: The patient is seen back today in followup. She is in no distress. She does have some left gabriel-coordination deficits. She is working in therapies. She is able to get up and ambulate a short distance today mod assist with the front-wheeled walker. She had a couple of losses of balance to the left. OT has been involved as well. Transfers supine to sit with min assist, needs mod to max assist for functional standing balance. Mild impulsivity. Appears highly motivated. ASSESSMENT: 1. Ischemic left cerebellar cerebrovascular accident. 2. Truncal ataxia with gait instability. 3. Left upper and lower extremity dysmetria with ataxia. 4. Hypertension. 5. Acute renal cyst. 6. Urinary tract infection. 7. Cardiomyopathy. 8. Tobacco abuse. PLAN: The overall plan of care is based on the pre-admission screen, post-admission physician evaluation and information garnered from therapy assessments. 1. Estimated length of stay is probably at least 10-14 days pending progress. 2. Medical prognosis is reasonably good. 3. Anticipated interventions include the interdisciplinary acute inpatient rehabilitation program with the goal of maximizing the patient's functional independence so that she can hopefully return back to her prior living situation. 4. Anticipated functional outcomes would be for the patient to become modified independent with transfers, mobility, ADLs and improved cognition as well as swallowing so that she can return back to the home setting. 5. Discharge destination would be back to the home setting where she lives with her son and daughter. 6. Expected therapy by discipline includes PT, OT and speech 1 hour per day [address] [address] REHAB UNIT PLAN OF CARE Name: FABIOLA VÁZQUEZ Room #: 511-P [facility] IN .R.#: [id number] Admission: 07/25/18 ������������������ Attend Phys: Rd Gan MD Discharge: ������������������ Date of : 59 Report #: [id number] each five days a week throughout the duration of the acute inpatient rehabilitation stay. ��������������������������������������������� <ELECTRONICALLY SIGNED> ���������������������������������������� By: Rd Gan MD ��������������������������������������������� 08/03/[address] MD /nt
--- NOTE | 2018-08-03 12:41 | H ---
[facility] [place] [address] HISTORY AND PHYSICAL Name: FABIOLA VÁZQUEZ Room #: 511-P ADM IN M.R.#: [id number] Admission: 07/25/18 ������������������ Attend Phys: Rd Gan MD Discharge: ������������������ Date of : 59 Report #: [id number] THIS REPORT FOR: //name// CC: Rd Gan [facility] physician/PCP DATE OF SERVICE: 07/25/2018 HISTORY OF PRESENT ILLNESS: The patient is a 62-year-old -Turkish female who originally was admitted to [facility] on 07/22/2018 with nausea and dizziness. She was found to have an acute left cerebellar CVA. Initially was admitted to the ICU, evaluated by Neurology and Cardiology. No signs of noted to have atrial fibrillation. She was noted to be outside the window for thrombolytic therapy. Medications were adjusted in terms of her hypertension management. She also was noted to have acute kidney injury as well as urinary tract infection. She was started on Rocephin IV and clinically responded in terms of symptomatic improvement of her dysuria. She was switched over to oral Ceftin. She was noted to have significant functional mobility, ADLs deficits with cognitive communication concerns with left-sided ataxia. She has been admitted for acute in-hospital inpatient rehabilitation. PAST MEDICAL HISTORY: Includes hypertension, diabetes mellitus, thyroid cancer, peptic ulcer disease, exogenous obesity. PAST SURGICAL HISTORY: Thyroidectomy, hysterectomy, tonsillectomy, adenoidectomy. HABITS: Tobacco cigarettes, less than 1 pack per day. Alcohol use occasionally. MEDICATIONS: Please see the full medication listing. This includes vitamins, herbals supplements over the counters. ALLERGIES: INCLUDE PENICILLIN. SOCIAL HISTORY: Lives with family. She lives at home with her son and son does not work and daughter is on hemodialysis and does night classes at college. They are able to assist her if needed. She was independent with ADLs and chairs IADLs. 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 REVIEW OF SYSTEMS: Did not offer any current complaints of chest pain, shortness of breath, abdominal discomfort. She notes the left-sided coordination difficulties. Did not have any focal extremity pain complaints. PHYSICAL EXAMINATION: GENERAL: The patient is a pleasant 62-year-old overweight -Turkish [place] [id number] HISTORY AND PHYSICAL Name: FABIOLA VÁZQUZE Room #: 511-P [facility] IN ..#: [id number] Admission: 07/25/18 ������������������ Attend Phys: Rd Gan MD Discharge: ������������������ Date of : 59 Report #: [id number] female in no obvious distress. VITAL SIGNS: Last recorded temperature 97.5, pulse 85, respirations 18, blood pressure 155/87. She is alert. HEAD, EYES, EARS, NOSE, AND THROAT: Appeared to be benign. EOMs are full. She has a hint of some lateral nystagmus at end gaze. Able to express herself quite well. Some latency to her responses. CHEST: Sounded clear to auscultation. CARDIOVASCULAR: Sounded regular rate and rhythm. ABDOMEN: Obese, bowel sounds positive, nontender. GENITOURINARY AND RECTAL: Deferred. EXTREMITIES: She does have some definite left upper extremity dysmetria with dysdiadochokinesis and decreased [id number]. She has left lower extremity ataxia as well. She has decreased ability to toe tap on the left. Strength is probably a grade 4- to 4/5. Right upper extremity strength is more of a grade 4+/5. DTRs were 1. No focal calf swelling. Functionally, she is transferring with bed to chair, max assist, gait, max assist 5 feet with front-wheeled walker. She needs some assistance with her left upper extremity coordination difficulties for ADLs. ASSESSMENT: A 62-year-old -Turkish female with the following problem list: 1. Ischemic left cerebellar cerebrovascular accident. 2. Truncal ataxia with gait instability. 3. Left upper and lower extremity dysmetria with ataxia. 4. Dizziness and nausea secondary to the above, which appears improved. 5. Hypertension. 6. Acute renal cyst. 7. Urinary tract infection. 8. Cardiomyopathy. 9. Tobacco abuse. PLAN: The patient is admitted for an acute in-hospital inpatient rehabilitation stay. From a post-admission physician evaluation perspective, there are no relevant changes since the preadmission screening. Please see the above review of prior and current medical and functional conditions and comorbidities. Please see the patient's previous and current functional status. As far as risk of complication, she does have multiple medical comorbidities as noted above. Initial plan of care involves the interdisciplinary acute inpatient rehabilitation program with the goal of maximizing the patient's functional independence, so she can hopefully return back to her prior living situation. Measurable functional goals the patient to become modified transfers, mobility, ADLs and improve as far as cognition, communication stitch return back to the home setting. Loss of diet further assessed. Prognosis is reasonably good with estimated length of stay probably at least 10-14 days pending progress. Potential barriers would include her above noted medical comorbidities and her [facility] [address] [place] [address] HISTORY AND PHYSICAL Name: FABIOLA VÁZQUEZ Room #: 511-P ADM IN M.R.#: [id number] Admission: 07/25/18 ������������������ Attend Phys: Rd Gan MD Discharge: ������������������ Date of : 59 Report #: [id number] decreased functional status. We will be having the multiple lending consultant physicians follow while she is on the acute inpatient rehab [place]. ��������������������������������������������� <ELECTRONICALLY SIGNED> ���������������������������������������� By: Rd Gan MD ��������������������������������������������� 08/03/[address] MD /[facility]
[2018-08-03 20:08] VITALS: BP 166/83
--- NOTE | 2018-08-04 00:37 | NUR ---
PT ALERT AND ORIENTED X 4. RIGHT SIDED WEAKNESS. AMB TO BR WITH WALKER AND ASSIST X 1. VOIDING WITHOUT DIFFICULTY. PT DENIES PAIN OR DISCOMFORT. BED ALARM ON FOR SAFETY. PT APPEARS TO BE SLEEPING ON HOURLY ROUNDS.
[2018-08-04 07:45] VITALS: BP 139/60
[2018-08-04 20:10] VITALS: BP 170/75
--- NOTE | 2018-08-05 03:59 | NUR ---
PT ALERT AND ORIENTED X 4. LEFT SIDED WEAKNESS. FOUND PT IN BATHROOM ONCE TONIGHT. HAD TRANSFERRED SELF TO W/C AND THEN TO TOILET WITHOUT ASSISTANCE. PT INSTRUCTED TO CALL FOR HELP WHEN GETTING UP. BP 170/75 AT HS. PRN HYDRALAZINE GIVEN. PT DENIES PAIN OR DISCOMFORT. BED ALARM ON FOR SAFETY. PT APPEARS TO BE SLEEPING ON HOURLY ROUNDS.
[2018-08-05 08:53] VITALS: BP 183/99
[2018-08-05 10:00] VITALS: BP 150/76
--- NOTE | 2018-08-05 10:44 | NUR ---
ASSUMED CARES AT 0700. PT AWAKE, ALERT AND ORIENTED *4. DENIES PAIN. BP ELEVATED THIS AM 183/99, HYDRALIZINE PLUS AM BP LOWERING MEDS ADMINISTERED, RECHECKED BP AFTER 1 HR 150/76. SKIN REMAINS INTACT. BLE EDEMA, ESE HOSE IN PLACE, ELEVATING EXTREMITIES WHEN IN THE CHAIR. CONTINUES TO HAVE MILD LEFT-SIDED WEAKNESS. UP WITH 1 PERSON MIN ASSIST AND AMBULATED WITH 1 ASSIST. Q1H VISUAL CHECKS. CALL LIGHT WITHIN REACH. FALL PRECAUTIONS IN PLACE.
[2018-08-05 19:35] VITALS: BP 177/94
--- NOTE | 2018-08-06 03:25 | NUR ---
assumed care at approx 1900 evening 08/05. pt sitting up in wc at change of shift looking on computer and visiting with family at bedside. pt alert and oriented x4, pleasant and cooperative. pt in good mood stating she had a good weekend. pt appears to be sleeping soundly with hourly rounding checks. bed alarm on and call light in reach. will continue to monitor.
[2018-08-06 07:30] VITALS: BP 170/92
--- NOTE | 2018-08-06 11:17 | NUR ---
ASSUMED CARES AT 0700. PT AWAKE, ALERT AND ORIENTED*4. DENIES PAIN. BP ELEVATED THIS AM, BP LOWERING MEDICATION ADMINISTERED. ALL OTHER VITALS STABLE. SKIN REMAINS INTACT. PT AMBULATING TO THE BATHROOM AND ON HALLWAY WITH WALKER, GAITBELT AND TOLERATES WELL. CONTINUES TO HAVE SOME MILD LEFT SIDED WEAKNESS. UP WITH 1 MIN ASSIST. Q1H VISUAL CHECKS. CALL LIGHT WITHIN REACH. FALL PRECAUTIONS IN PLACE
--- NOTE | 2018-08-06 14:06 | NUR ---
jesus received phone call from deven prado, stated " going to come out and visit with astrid later today around 1530, do not want to interrupted her rehab time."/sancho. jesus passed on information to bedside nurse. will cont following as needed for dc needs.
[2018-08-06 19:16] VITALS: BP 148/67
--- NOTE | 2018-08-07 01:55 | NUR ---
PT ALERT AND ORIENTED X 4. UP TO W/C WITH PIVOT ASSIST X 1 WITHOUT DIFFICULTY. THEN TRANSFERRED TO TOILET WITHOUT DIFFICULTY. LEFT SIDED WEAKNESS. BP 148/67 AT HS. PT DENIES PAIN OR DISCOMFORT. BED ALARM ON FOR SAFETY. PT APPEARS TO BE SLEEPING ON HOURLY ROUNDS.
[2018-08-07 03:58] LABS: CALCIUM 8.4 mg/dL (8.5-10.1); CREATININE 2.2 mg/dL (0.6-1.0); MAGNESIUM 2.2 mg/dL (1.8-2.4); POTASSIUM 4.5 mmol/L (3.5-5.1)
[2018-08-07 04:01] LABS: ABSOLUTE NEUTROPHILS 9.5 thou/uL (1.4-8.2); BASOPHILS 0.5 % (0.0-2.0); HEMATOCRIT 25.3 % (37.0-47.0); HEMOGLOBIN 8.3 gm/dL (12.0-15.0); MCH 29.6 pg (26.0-34.0); MCHC 32.9 g/dL (28.0-37.0); MONOCYTES 5.2 % (1.0-8.0); PLATELET COUNT 166 thou/uL (150-400); POLYS 76.3 % (36.0-66.0); RBC 2.81 mil/uL (4.20-5.00); RDW 14.7 % (10.5-14.5); WBC 12.4 thou/uL (4.0-11.0)
[2018-08-07 08:33] VITALS: BP 186/87
--- NOTE | 2018-08-07 10:07 | NUR ---
ASSUMED CARE AT 0700. PATIENT IS ALERT AND ORIENTEDX4. PATIENT WADE'S, BETTING CLERKS ARE EQUAL. LUNGS ARE CLEAR. ABD IS SOFT WITH BSX4. UP WITH WALKER, AND GAIT BELT. PATIENT HAS +1 EDEMA IN HER LOWER EXTREMITIES. UP IN BED FOR MEALS. FALL AND SAFETY PROTOCOLS IN PLACE. DENIES ANY PAIN AT THIS TIME. CONTINUES TO PROGESS TOWARDS D/C GOALS. WILL CONTINUE TO MONITER.
[2018-08-07 11:26] VITALS: BP 179/93
--- NOTE | 2018-08-07 13:47 | NUR ---
team meeting, recommendation dc , ,(pt, ot), then deven ability vs outpt rehab after hh. FWW, grab bars, and shower bench.
[2018-08-07 17:14] VITALS: BP 181/91
[2018-08-07 19:00] VITALS: BP 173/89
--- NOTE | 2018-08-08 00:19 | NUR ---
PT ALERT AND ORIENTED X 4. LEFT SIDED WEAKNESS. BLOOD SUGAR 173 AT HS. PT DENIES PAIN OR DISCOMFORT. BED ALARM ON FOR SAFETY. PT APPEARS TO BE SLEEPING ON HOURLY ROUNDS.
[2018-08-08 06:10] VITALS: BP 177/87
[2018-08-08 08:00] VITALS: BP 150/70
--- NOTE | 2018-08-08 10:54 | NUR ---
ASSUMED CARE AT 0700. PATIENT IS ALERT AND ORIENTED X4. PATIENT EDUCATION REP ARE STRONG. PATIENT HAS ESE HOSE ON. LUNGS ARE CLEAR. ABD IS SOFT WITH BSX4. UP TO THE BATHROOM TO VOID PIOTR COLORED URINE. UP ON SIDE OF BED FOR MEALS. FALL AND SAFETY PROTOCOLS IN PLACE. DENIES PAIN AT THIS TIME. CONTINUES TO PROGRESS TOWARDS D/C GOALS. WILL CONTINUE TO MONITER.
--- NOTE | 2018-08-08 12:10 | NUR ---
Nutrition: pt seen per followup. Continues to eat well, 100% of meals. BG 127-209. No weight sine 2/6. Dietary education complete. Continue low risk.
[2018-08-08 16:30] VITALS: BP 174/82
[2018-08-08 19:50] VITALS: BP 145/77
[2018-08-08 21:40] VITALS: BP 187/93; BP 200/96
[2018-08-08 22:40] VITALS: BP 176/79
--- NOTE | 2018-08-09 02:09 | NUR ---
assumed care at approx 1900 evening 08/08. pt sitting up in w/c at change of shift with pt watching tv and visiting with daughter at bedside. pt alert and oriented x4, pleasant and cooperative. pt concerned about her blood pressure. reassurance given to pt regarding htn. CHIEF PORT DIRECTOR called regarding Htn and no new orders given except to continue to monitor. pt was given Hydralazine prn as ordered. pt appears to be sleeping soundly with hourly rounding checks. daughter sleeping in other bed in apt. bed alarm on and call light in reach. will continue to monitor.
[2018-08-09 06:15] VITALS: BP 159/86
--- NOTE | 2018-08-09 14:49 | NUR ---
Patient participated in community reintegration on 08/09/18 with Physical Therapy. Refer to documentation by PT.
--- NOTE | 2018-08-09 15:55 | NUR ---
PT IS IN ROOM AT THIS TIME STATES NO PAIN, DOES NOT NEED ANYTHING AT THIS TIME. UP IN W/C CALLS FOR ASSIST TO BATHROOM. TAKES MEDS PO WITH NO DIFICULTY. FEEDS SELF WITH SET- UP.
--- NOTE | 2018-08-09 20:30 | NUR ---
MEDS REVIEWED WITH PATIENT. SHE NOTES THAT SHE HAS BEEN ON A VARIETY OF BP MEDS, I AM GIVING 10 MG OF NORVASC NOW WITH HER BP CURRENTLY 152/73. DISCUSSION THAT WEIGHT LOSS AND LOW SODIUM DIET CAN ALSO HELP LOWER BP. PLEASANT AND SOCIALIZING WITH FAMILY.
[2018-08-09 21:13] VITALS: BP 152/73
--- NOTE | 2018-08-10 02:03 | NUR ---
UP TO BSC FOR VOID, ILEOSTOMY DRAINING WELL, Z-GUARD TO OPEN BUTTOCK SORE. PATIENT IS PLEASANT AND HER TREMORS ARE BARELY VISIBLE, GABAPENTIN Q8H DISCUSSED
[2018-08-10 05:52] LABS: ABSOLUTE NEUTROPHILS 8.9 thou/uL (1.4-8.2); BASOPHILS 0.5 % (0.0-2.0); EOSINOPHILS 2.2 % (0.0-3.0); HEMATOCRIT 25.1 % (37.0-47.0); HEMOGLOBIN 8.1 gm/dL (12.0-15.0); LYMPHOCYTES 16.1 % (24.0-44.0); MCH 28.8 pg (26.0-34.0); MCHC 32.2 g/dL (28.0-37.0); MCV 89.7 fL (80.0-100.0); MONOCYTES 5.5 % (1.0-8.0); PLATELET COUNT 170 thou/uL (150-400); POLYS 75.7 % (36.0-66.0); RDW 14.6 % (10.5-14.5); WBC 11.7 thou/uL (4.0-11.0)
[2018-08-10 08:04] LABS: CALCIUM 8.6 mg/dL (8.5-10.1); CREATININE 1.9 mg/dL (0.6-1.0); MAGNESIUM 2.1 mg/dL (1.8-2.4); POTASSIUM 4.8 mmol/L (3.5-5.1)
[2018-08-10 08:43] VITALS: BP 136/67
--- NOTE | 2018-08-10 17:45 | NUR ---
PATIENT ALERT AND ORIENTED AND PROGRESSING TOWARDS DISCHARGE HOME NEXT HOME NEXT WEEK. PATIENT IS STAYING IN APARTMENT AND DAUGHTER WILL SOMETIMES STAY OVERNIGHT WITH PATIENT. PATIENT PARTICIPATED IN REHAB TODAY. PATIENT LEFT UNIT WITHOUT NOTIFYING STAFF. SECURITY WAS NOTIFIED AND FOUND PATIENT IN HER WHEELCHAIR ON THE FIRST FLOOR AT THE [employer]. PATIENT INSTRUCTED TO NOTIFY STAFF IF SHE LEAVES THE REHAB FLOOR. PATIENT INDICATED SHE WAS USING WHEELCHAIR PER PHYSICAL THERAPY WHEN ASKED ABOUT LEAVING THE REHAB UNIT. PATIENT PLEASANT AND INDICATED SHE WOULD LIKE TO RETURN TO HER PREVIOUS EMPLOYMENT. SHE'S CONCERNED THAT SHE MAY NOT GET ENOUGH REHAB UPON DISCHARGE.
[2018-08-10 19:45] VITALS: BP 136/62
--- NOTE | 2018-08-11 04:28 | NUR ---
TOLERATING UP IN WHEELCHAIR. DAUGHTER MONIQUE STAYING OVERNIGHT. DISCUSSION OF LOW-SALT STRATEGIES AND PLATE METHOD MEAL PLANNING AND CARB COUNTING. AWARE OF NEED TO MINIMIZE SBP ONLY DOWN TO 130. HAS STRENGTH AND CONTINUES TO WORK ON BALANCE WITH THERAPIES
[2018-08-11 08:17] VITALS: BP 155/76
--- NOTE | 2018-08-11 14:36 | NUR ---
ASSUMED CARE AT APPROX 0715. PATIENT A/O X4. DENIES PAIN. VSS. BP ELEVATED, BP MEDS GIVEN PER PARAMETERS. PARTICIPATING IN THERAPY. ASSIST X1 FOR TRANSFERS/AMBULATION, GB AND WALKER USED. CALLS APPROPRIATELY. DAUGHTER AT BEDSIDE. FALL PRECAUTIONS IN PLACE. WILL CONTINUE TO MONITOR.
[2018-08-11 19:10] VITALS: BP 141/59
--- NOTE | 2018-08-12 03:56 | NUR ---
ASSUMED CARE OF PT AT 1915. PT ALERT AND ORIENTED X4. DENIES NAUSEA, PAIN OR DYPSNEA. DAUGHTER STAYING IN ROOM. AMBULATES TO BATHROOM WITH STANDBY ASSIST OF ONE USING GAIT BELT AND WALKER. APPEARS TO BE SLEEPING WHEN CHECKED ON HOURLY ROUNDS. FALL PRECAUTIONS IN PLACE.
[2018-08-12 08:29] VITALS: BP 148/73
--- NOTE | 2018-08-12 18:08 | NUR ---
PATIENT ALERT AND ORIENTED WITH DAUGHTER STAYING WITH HER IN THE REHAB APARTMENT. PATIENT INSTRUCTED TO CALL FOR HELP WHEN SHE NEEDS TO GO TO BATHROOM. PATIENT STATES THE MEDS SHE IS CURRENTLY TAKING ARE SIMILAR TO WHAT SHE HAS TAKEN PRIOR TO HOSPITALIZATION. POC GLUCOSE IN LOW 100'S TODAY. PATIENT CONTINUES TO PROGRESS TOWARDS HER REHAB GOALS.
[2018-08-12 20:00] VITALS: BP 158/81
--- NOTE | 2018-08-13 01:47 | NUR ---
PT ALERT AND ORIENTED X 4. AMB TO BR WITH WALKER AND ASSIST X 1 WITHOUT DIFFICULTY. PT DENIES PAIN OR DISCOMFORT. BED ALARM ON FOR SAFETY. PT APPEARS TO BE SLEEPING ON HOURLY ROUNDS.
[2018-08-13 07:30] VITALS: BP 137/63
--- NOTE | 2018-08-13 12:44 | NUR ---
ASSUMED CARE AT APPROX 0715. REPORTS SLEPT GOOD LAST NIGHT. PATIENT A/O X4. DENIES PAIN. VSS, BP MEDS GIVEN PER PARAMETERS. PARTICIPATING IN THERAPY. PT REQUESTS TO BE M.I IN ROOM. NOTIFIED PHYSCIAL THERAPIST TO EVALUATE. ASSIST X1 FOR TRANSFERS/AMBULATION, GB AND WALKER USED. CALLS APPROPRIATELY. DAUGHTER AT BEDSIDE. OFFERED SUPPORTIVE CARE. ENCOURAGED PT TO VOICE HER NEEDS. BS HAS BEEN STABLE, NOT ON INSULIN. NOTIFIED DR. RICHARDSON THAT PT WILL BE DISCHARGE TOMORROW. RECEIVED ORDER TO D/C BLOOD SUGAR ACHS AND OBTAINED ORDER FOR CBC AND CMP TOMORROW BEFORE DISCHARGE. FALL PRECAUTIONS IN PLACE. WILL CONTINUE TO MONITOR.
--- NOTE | 2018-08-13 12:51 | NUR ---
cm re-visited with pt about home health company. pt stated "[facility] is ok for [facility]"/astrid. cm sent referral to [facility] and will cont following as needed for dc needs.
[2018-08-13 19:30] VITALS: BP 174/81
[2018-08-13 22:43] VITALS: BP 155/77
--- NOTE | 2018-08-14 02:16 | NUR ---
PT ALERT AND ORIENTED X 4. MODIFIED INDEPENDENT IN ROOM WITHOUT DIFFICULTY. BP 174/81 AT START OF SHIFT. PRN HYDRALAZINE GIVEN. BP 155/77 AT 2240. PT DENIES PAIN OR DISCOMFORT. PT CHECKED ON HOURLY ROUNDS.
[2018-08-14 04:42] LABS: HEMATOCRIT 25.7 % (37.0-47.0); HEMOGLOBIN 8.5 gm/dL (12.0-15.0); MCH 30.1 pg (26.0-34.0); MCHC 33.2 g/dL (28.0-37.0); MCV 90.6 fL (80.0-100.0); RBC 2.84 mil/uL (4.20-5.00); RDW 14.7 % (10.5-14.5); WBC 14.5 thou/uL (4.0-11.0)
[2018-08-14 04:52] LABS: ALBUMIN 2.9 g/dL (3.4-5.0); CALCIUM 8.4 mg/dL (8.5-10.1); CREATININE 2.1 mg/dL (0.6-1.0); POTASSIUM 5.3 mmol/L (3.5-5.1); TOTAL BILIRUBIN 0.3 mg/dL (<0.1-1.0); TOTAL PROTEIN 6.6 g/dL (6.4-8.2)
[2018-08-14] MEDS ORDERED: LASIX 20 MG TAB20 MG PO (08:46)
[2018-08-14] MEDS ORDERED: NORVASC10 MG PO (08:46)
[2018-08-14] MEDS ORDERED: HYDRALAZINE 10M10 MG PO (08:46)
[2018-08-14] MEDS ORDERED: ANTIVERT25 MG PO (08:46)
[2018-08-14 09:07] VITALS: BP 183/92
--- NOTE | 2018-08-14 09:08 | NUR ---
ASSUMED CARE AT APPROX 0715. REPORTS SLEPT GOOD LAST NIGHT. PATIENT A/O X4. DENIES PAIN. BP 183/92, HR 97. DENIES HEADACHE OR DIZINESS. B/P MEDS AND MORNING MEDS GIVEN. REASSESSMENT PER CHART. LABS REVIEWED. POTASSIUM 5.3, VILMA AWARES OF LABS RESULTS. SODIUM POLYSTYRENE SULFONATE ORDERED. PT REFUSED BECAUSE SHE WILL GO HOME TODAY AND DOESN'T WANT BATHROOM NEEDS GET IN THE WAY. AMBULATION M.I IN ROOM GB AND WALKER USED.CALLS APPROPRIATELY. DAUGHTER AT BEDSIDE. OFFERED SUPPORTIVE CARE. ENCOURAGED PT TO VOICE HER NEEDS. WILL CONTINUE TO MONITOR.
[2018-08-14 10:17] VITALS: BP 148/73
[2018-08-14] MEDS ORDERED: ATORVASTATIN CA10 MG PO (10:25)
[2018-08-14 10:26] VITALS: BP 148/73
--- NOTE | 2018-08-14 16:48 | NUR ---
PT. DISCHARGING TO HOME WITH [facility]. SPOKE WITH ADM. AMBROSIO AND SHE WILL NOTIFY PT. OF TIME OF VISITS.
== END 2018-08-14 12:39 | disposition home health service (06) | DRG 64 ==
LOC: ENTRNSPT 08-14 11:37 → EDTRNSPTSTS 08-14 11:41
PROVIDERS: Internal Medicine; Nurse Practitioner; ADMIT Physical Medicine & Rehabilitation
DX: I63.9 Cerebral infarction, unspecified (principal); N17.0 Acute kidney failure with tubular necrosis; N39.0 Urinary tract infection, site not specified; I42.9 Cardiomyopathy, unspecified; Z68.41 Body mass index [BMI] 40.0-44.9, adult; I69.354 Hemiplegia and hemiparesis following cerebral infarction affecting left non-dominant side; R27.0 Ataxia, unspecified; N28.1 Cyst of kidney, acquired; F01.50 Vascular dementia, unspecified severity, without behavioral disturbance, psychotic disturbance, mood disturbance, and anxiety; F41.9 Anxiety disorder, unspecified; D64.9 Anemia, unspecified; E87.5 Hyperkalemia; R27.8 Other lack of coordination; I25.10 Atherosclerotic heart disease of native coronary artery without angina pectoris; E66.09 Other obesity due to excess calories; I12.9 Hypertensive chronic kidney disease with stage 1 through stage 4 chronic kidney disease, or unspecified chronic kidney disease; N18.9 Chronic kidney disease, unspecified; K58.1 Irritable bowel syndrome with constipation; Z87.891 Personal history of nicotine dependence; Z87.11 Personal history of peptic ulcer disease; Z90.710 Acquired absence of both cervix and uterus; Z88.0 Allergy status to penicillin
CPT/HCPCS: 10112

== ENCOUNTER → 2019-08-27 | Outpatient (CLI) | payer OTHER ==
[~2019-08-27] MED LIST changes: +ANTIVERT25 MG PO; +ASPIRIN325 PO; +ATORVASTATIN CA10 MG PO; +CARVEDILOL12.5 MG PO; +CEFUROXIME250 MG PO; +COZAAR100 MG PO; +HYDRALAZINE 10M10 MG PO; +LASIX 20 MG TAB20 MG PO; +NORVASC 2.5 MG2.5 M1 PO; +NORVASC10 MG PO; +ROSUVASTATIN CA20 MG PO; +TORSEMIDE20 MG PO; +TRADJENTA5 MG PO
[2019-08-27 13:48] VITALS: BP 161/91
[2019-08-27 15:05] VITALS: BP 149/89
--- NOTE | 2019-08-27 15:20 | NUR ---
IN FOR 1ST INJECTAFER INFUSION. STATED FEELING WELL EXCEPT FOR FATIGUE. DENIED PAIN. ADMISSION HISTORY AND ASSESSMENT COMPLETED. MEDICATION RECONCILED. TOLERATED INFUSION WITHOUT INCIDENT. OBSERVED FOR 30 MINUTES. POST VITAL SIGNS GOOD. REMOVED IV AND DISMISSED IN STABLE CONDITION. TO RETURN NEXT MONDAY FOR 2ND INFUSION.
== END ==
LOC: OPONC 13:13
DX: N18.4 Chronic kidney disease, stage 4 (severe) (principal); D64.9 Anemia, unspecified
CPT/HCPCS: 95000

== ENCOUNTER → 2019-09-03 | Outpatient (CLI) | payer OTHER ==
[2019-09-03 14:28] VITALS: BP 150/88
[2019-09-03 14:45] VITALS: BP 152/85
[2019-09-03 14:50] VITALS: BP 152/88
--- NOTE | 2019-09-03 14:50 | NUR ---
PATIENT ARRIVED FOR INFUSION. ASSESSMENT WELL PRE VITALS COMPLETED. QUESTIONS ANSWERED. PIV STARTED AND INFUSION BEGAN WITHOUT DIFFICULTY.
[2019-09-03 15:00] VITALS: BP 152/82
[2019-09-03 15:26] VITALS: BP 150/80
--- NOTE | 2019-09-03 15:27 | NUR ---
INFUSION COMPLETED WITH NO SIGNS OF ADVERSE REACTION. POST VITALS WNL. PIV REMOVED. PATIENT 30MN POST INFUSION WITHOUT COMPLAINTS. QUESTIONS ANSWERED. DAUGHTER HERE TO TRANSPORT THE PATIENT HOME.
== END ==
LOC: OPONC 09:17
DX: D64.9 Anemia, unspecified (principal); N18.4 Chronic kidney disease, stage 4 (severe)
CPT/HCPCS: 95000